=== PATIENT | male | born 1975 | race Caucasian/White ===

== ENCOUNTER 2018-12-04 18:59 | Emergency (ER) | payer SELFPAY ==
[2018-12-04] MEDS ORDERED: TETANUS & DIPHTHERIA TOX,ADULT 0.5 ML VIAL ONE (19:27)
[2018-12-04] MEDS ORDERED: ONDANSETRON 4 MG/2 ML VIAL ONE ×2 (19:27→21:37)
[2018-12-04] MEDS ORDERED: CEFAZOLIN 2GM (PREMIX IV) 2 GM/50 ML BAG ONE (19:27)
[2018-12-04] MEDS ORDERED: HYDROMORPHONE HCL 1 MG/ML INJ ONE ×2 (19:27→21:37)
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
[2018-12-04 19:49] LABS: Absolute Lymphocytes (CBC) 1.5 K/uL (0.7-4.9); Absolute Monocytes 0.6 K/uL (0.1-1.3); Absolute Neutrophil 7.4 K/uL (1.8-8.0); Basophils % 0.4 % (0-1.3); Eosinophils % 0.2 % (0-4.4); Lymphocytes % 16.2 % (15.3-44.8); MPV 8.2 fL (7.6-11.3); Monocytes % 5.9 % (3.3-12.3)
[2018-12-04 19:53] LABS: Protime INR 0.97
[2018-12-04 20:05] LABS: Potassium 3.5 mmol/L (3.5-5.1)
[2018-12-04] MEDS ORDERED: NA CHLORIDE 0.9% 1,000 ML ONE (20:12)
[2018-12-04] MEDS ORDERED: CLINDAMYCIN 900MG/D5W 900 MG/50 ML IVPB IV ONE (20:55)
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
--- NOTE | 2018-12-04 21:01 | RAD REPORT ---
EXAM DESCRIPTION: RAD - Humerus Right - 12/04/2018 8:39 pm CLINICAL HISTORY: Right arm pain FINDINGS: Limited one view series obtained. No gross fracture seen
--- NOTE | 2018-12-04 21:03 | RAD REPORT ---
EXAM DESCRIPTION: RAD - Forearm Right - 12/04/2018 8:39 pm CLINICAL HISTORY: Right arm pain FINDINGS: Limited examination performed secondary to difficulty with patient positioning. No gross fracture seen
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
[2018-12-04 21:42] LABS: Urine Blood 3+ (NEG); Urine Glucose NEGATIVE (NEG); Urine Protein TRACE (NEG); Urine Specific Gravity 1.015 (1.005-1.030)
--- NOTE | 2018-12-05 08:09 | EKG ---
Test Date: 2018-12-04 Test Time: 19:46:21 Doubler Helper: RICKIE MEASUREMENT RESULTS: Intervals: Rate: 57 AL: 154 QRSD: 94 QT: 436 QTc: 424 [place]enton: P: 50 AL: 154 QRS: 52 T: 42 INTERPRETIVE STATEMENTS: Sinus bradycardia Cannot rule out Anterior infarct, age undetermined Abnormal ECG No previous ECG available for comparison Electronically Signed On 12-05-18 08:08:35 [employer] by Demetrio Paiz
== END 2018-12-04 21:50 | disposition short-term general hospital (02) ==
LOC: ER 18:59
DX: S51.011A Laceration without foreign body of right elbow, initial encounter (principal); M24.821 Other specific joint derangements of right elbow, not elsewhere classified; V86.59XA Driver of other special all-terrain or other off-road motor vehicle injured in nontraffic accident, initial encounter; Y93.9 Activity, unspecified; Y92.89 Other specified places as the place of occurrence of the external cause; Z23 Encounter for immunization
CPT/HCPCS: 36415; 70450; 71260; 72125; 74177; 80048; 81003; 85025; 85610; 85730; 90714; 93005; 99285; J0690; J1170; J2405; J7030; Q9967